=== PATIENT | female | born 1990 | race Caucasian/White ===

== ENCOUNTER 2017-05-04 07:42 | Emergency (ER) | payer OTHER ==
[~2017-05-04] VITALS: Ht 162.6 cm; Wt 72.0 kg
[2017-05-04 07:45] VITALS: BP 126/78
== END 2017-05-04 08:39 | disposition home or self-care (01) ==
LOC: ED 08:13
DX: K02.9 Dental caries, unspecified (principal); K08.89 Other specified disorders of teeth and supporting structures; Z88.0 Allergy status to penicillin
CPT/HCPCS: 99283